=== PATIENT | male | born 1980 | race Caucasian/White ===

== ENCOUNTER 2025-01-11 18:08 | Emergency (ER) | payer OTHER, SELFPAY ==
[2025-01-11 18:08] VITALS: BP 154/89; PULSE 89; RESP 16; TEMP 36.6; O2SAT 98; BMI 25.0
[2025-01-11 19:12] VITALS: BP 138/96; PULSE 71; RESP 16; O2SAT 98
[2025-01-11] MEDS: fentaNYL 100 MCG/2 ML Ampul 50 MCG IV ×2 (19:17→20:34)
--- NOTE | 2025-01-11 19:30 | RAD_ITS ---
PROCEDURE: RIGHT FINGER(S) MIN 2 VIEWS 01/11/2025 REASON FOR EXAM: AMPUTATION TECHNIQUE: Procedure Code: RADFIN Modality: DX Procedure: FINGER(S) MIN 2 VIEWS Laterality: Right COMPARISON: None. FINDINGS: Traumatic amputation of the 2nd digit at the level of the distal interphalangeal joint. No acute fracture of the 2nd proximal or middle phalanx appreciated, but there are small bony fragments at the distal aspect likely originating from the distal phalanx. Soft tissue swelling and open soft tissue defect at the distal aspect of the 2nd digit. Small linear density superficially at the laceration defect. RAD/Finger(s) Min 2 Views IMPRESSION: Traumatic amputation of the 2nd digit at the DIP joint. Reading Location: [id number]
[2025-01-11] MEDS: Cefazolin 2 GM in 0.9% Normal Saline (100mL Bag) 100 ML IV (19:44)
[2025-01-11 20:00] VITALS: BP 115/80; PULSE 81; RESP 16; O2SAT 97
[2025-01-11 20:21] VITALS: BP 123/77; PULSE 77; RESP 18; TEMP 36.7; O2SAT 97
--- NOTE | 2025-01-11 20:47 | ED.RN ---
This RN called report to CLAIRE Camejo at [facility] at this time.
--- NOTE | 2025-01-12 00:56 | EDS_ITS ---
HPI History of Present Illness Chief Complaint: Laceration Narrative Narrative: Patient is a 44-year-old right handed [place] male presenting to the emergency department for a right index finger amputation. Patient states that he was using a chain from a [employer] and this amputated his finger. He denies any other injuries. Denies any pain medication prior to arrival. Is unsure of when his last tetanus vaccine was. Brought amputated finger with him. Tetanus Immunization: Unknown PFSH PFS Medical History no medical history Allergy/AdvReac Type Severity Reaction Status Date / Time No Known Allergies Allergy Verified 01/11/25 18:12 Social History Smoking Status: Never smoker ROS ROS ED ROS Narrative See HPI EXAM Physical Exam Narrative Exam Narrative: Vital signs: Reviewed General: Alert and oriented x 3. No acute distress HEENT: Head is normocephalic and atraumatic, sinuses nontender, pupils equal round and reactive. Nares are patent. Oropharynx and throat exams normal. Neck: Supple without lymphadenopathy nontender Cardiovascular: Regular rate and rhythm, no murmurs. No rubs or gallops. Normal S1 and S2 Respiratory: Clear to auscultation bilaterally. No wheezes, rales, rhonchi Abdominal: Soft and nontender. Normal bowel sounds. No guarding or rebound. Nonsurgical abdomen Extremities: There is a avulsion degloving amputation to the right index finger. There is bone exposed along the distal middle phalanx. Initially when the gauze was removed there was pulsatile bleeding however when removed again was oozing. Does not appear arterial. Radial pulses intact bilaterally. Sensation intact in the radial, median and ulnar distributions. Patient able to flex and extend at the right index PIP however range of motion is otherwise limited due to the injury. Neurological: Cranial nerves II through XII are grossly intact. Normal strength and sensation. Normal cerebellar function The rest of the physical exam is unremarkable Const Vital Signs: 01/11/25 18:08 01/11/25 19:12 01/11/25 20:00 Temperature 98 F Temperature Source Oral Pulse Rate 89 71 81 Respiratory Rate 16 16 16 Blood Pressure 154/89 H 138/96 H 115/80 Blood Pressure Mean 110 110 91 Pulse Ox 98 98 97 Oxygen Delivery Method Room Air Room Air Room Air 01/11/25 20:21 Temperature 98.1 F Temperature Source Pulse Rate 77 Respiratory Rate 18 Blood Pressure 123/77 H Blood Pressure Mean 92 Pulse Ox 97 Oxygen Delivery Method MDM MDM MDM Narrative Medical decision making narrative: Patient is a 44-year-old male presenting to the emergency department for a amputation injury to his right index finger. Patient was seen and examined. Vitals are stable. Patient resting in bed comfortably no acute distress. Patient was given fentanyl for analgesia. Tetanus was updated. 2 g of Ancef was given. X-ray was obtained and shows a traumatic amputation of the second digit at the DIP joint. A finger tourniquet was placed to further evaluate the digit. Initially appeared arterial in nature however upon removing the gauze again it is only oozing. At this time we do not have hand consultation on-call. I discussed with Dr. Roque, hand surgeon, at [facility] who accepted the patient for transfer. He requested that the patient go ED to ED. I then spoke to resident physician, Tutu Varma, who accepted the patient for transfer ED to ED. I updated patient and at bedside on the findings and the plan. Explained the need for transfer. He is agreeable with being transferred but states that he will only go by private vehicle. Bleeding is controlled at this time I do think this is appropriate, risks and benefits of private transportation were discussed. Patient has capacity to make these decisions. He was instructed to be n.p.o. upon leaving here until [facility] He was also given an additional dose of pain medication prior to leaving here. Clinical impression Amputation of finger of right hand History & Record Review Discussion w/independent historian: Patient and Significant other Radiography X-Ray: Read by ED Physician (amputation at DIP joint) Diagnostic Testing: Clinical Impression(s) from Imaging Studies Finger X-Ray 01/11/25 19:30 IMPRESSION: Traumatic amputation of the 2nd digit at the DIP joint. Reading Location: [facility] Discharge Plan Triage Chief Complaint: Laceration ED Provider: Charlotte Martinez Dx/Rx/DC Orders Clinical Impression: Amputation of finger of right hand Primary Care Provider: Neo Carter Activity Restrictions/Additional Instructions: Please go straight to [facility] emergency department where they are expecting you. Do not eat or drink before going. Print Language: [place] Disposition Disposition: Home, Self Care Discharge Date/Time: 01/11/25 20:45
== END 2025-01-11 20:45 | disposition home or self-care (01) ==
PROVIDERS: Emergency Provider Student in an Organized Health Care Education/Training Program; PCP Family Medicine; Visit Provider Student in an Organized Health Care Education/Training Program
DX: S68.112A Complete traumatic metacarpophalangeal amputation of right middle finger, initial encounter (principal); Z23 Encounter for immunization; W31.89XA Contact with other specified machinery, initial encounter
CPT/HCPCS: 73140; 90715; 96365; 96375; 99283; A4216